=== PATIENT | male | born 1980 | race Caucasian/White ===

== ENCOUNTER 2017-01-09 21:38 | Emergency (ER) | payer OTHER ==
[~2017-01-09] VITALS: Ht 187.9 cm; Wt 127.0 kg
[2017-01-09] MEDS ORDERED: ZESTRIL10 MG PO (22:06)
[2017-01-09] MEDS ORDERED: MEDROL DOSEPAK4 MG PO (22:36)
== END 2017-01-09 22:45 | disposition home or self-care (01) ==
LOC: ED 21:38
DX: M79.652 Pain in left thigh (principal); M10.9 Gout, unspecified

== ENCOUNTER 2022-04-27 19:15 | Emergency (ER) | payer OTHER ==
[~2022-04-27 19:15] MED LIST: MEDROL DOSEPAK4 MG PO; ZESTRIL10 MG PO
[2022-04-27] MEDS ORDERED: PREDNISONE20 M1 PO (19:51)
[2022-04-27] MEDS ORDERED: HYDROCODONE-AC1 EAC1 PO (19:51)
== END 2022-04-27 20:15 | disposition home or self-care (01) ==
LOC: ED 19:15
DX: M10.9 Gout, unspecified (principal); M25.562 Pain in left knee; Z79.899 Other long term (current) drug therapy

== ENCOUNTER 2022-10-14 11:27 | Emergency (ER) | payer OTHER ==
[~2022-10-14] VITALS: Wt 117.9 kg
[~2022-10-14 11:27] MED LIST changes: +HYDROCODONE-AC1 EAC1 PO; +PREDNISONE20 M1 PO
[2022-10-14] MEDS ORDERED: PREDNISONE20 M1 PO (12:00)
== END 2022-10-14 12:05 | disposition home or self-care (01) ==
LOC: ED 11:27
DX: M10.9 Gout, unspecified (principal); Z79.899 Other long term (current) drug therapy; Z98.890 Other specified postprocedural states

== ENCOUNTER 2023-10-20 15:58 | Emergency (ER) | payer OTHER ==
[~2023-10-20] VITALS: Ht 190.5 cm; Wt 129.3 kg
[2023-10-20] MEDS ORDERED: PREDNISONE20 M1 PO (16:19)
[2023-10-20] MEDS ORDERED: ALLOPURINOL100 MG PO (16:19)
== END 2023-10-20 16:31 | disposition home or self-care (01) ==
LOC: ED 15:58
DX: M10.9 Gout, unspecified (principal); I10 Essential (primary) hypertension; Z88.8 Allergy status to other drugs, medicaments and biological substances; Z98.890 Other specified postprocedural states